=== PATIENT | female | born 1985 | race American Indian/Alaskan Native ===

== ENCOUNTER 2016-08-01 10:05 | Outpatient (CLI) | payer BC ==
[2016-08-01 12:32] LABS: Blood Urea Nitrogen 10 mg/dL (7-17)
[2016-08-01] MEDS ORDERED: NACL ONE (13:07)
--- NOTE | 2016-08-01 15:43 | Cat Scan Report ---
CT scan of chest with IV contrast: History: Hodgkin lymphoma. Fullness in left supra clavicular area. Findings: No mediastinal mass. No mediastinal, hilar or axillary adenopathy. No mass in the supraclavicular region. No pleural or pericardial effusion. Normal lung parenchyma. No discrete nodularity or consolidation. Impression: No mediastinal or lung mass or adenopathy.
--- NOTE | 2016-08-01 15:55 | Cat Scan Report ---
CT scan of neck with IV contrast: History: Hodgkin lymphoma. Findings: The laryngeal and tracheal air column appears unremarkable. Pre-and paravertebral soft tissue appears normal. The thyroid gland appears unremarkable. The submandibular salivary glands and the parotid glands appears normal. No evidence of adenopathy. No distinct mass. Impression: Essentially negative CT scan of neck.
== END 2016-08-01 10:06 | disposition home or self-care (01) ==
LOC: CT 10:05
DX: C81.90 Hodgkin lymphoma, unspecified, unspecified site (principal)
CPT/HCPCS: 36415; 70491; 71260; 82565; 84520; Q9967

== ENCOUNTER 2017-07-23 06:59 | Outpatient (CLI) | payer BC ==
--- NOTE | 2017-07-24 09:54 | PET Report ---
PET SB TO MT SUBSEQUENT: HISTORY: Restaging of lymphoma. TECHNIQUE: 13.5 millicuries F-18 FDG was administered intravenously. Noncontrast CT images and PET images were obtained from the skull base to the proximal thighs. Fused images were reviewed on a workstation. The patient's blood glucose level measured 128. COMPARISON: 05/31/15. FINDINGS: BRAIN: physiologic FDG uptake in the imaged brain. NECK: physiologic FDG uptake. MEDIASTINUM: physiologic FDG uptake. LUNGS: physiologic FDG uptake. Patchy groundglass opacities have resolved since 05/31/15. PLEURA/PERICARDIUM: physiologic FDG uptake. THORACIC LYMPH NODES: physiologic FDG uptake. HEPATOBILIARY: physiologic FDG uptake. Mean liver SUV measures 4.8 as opposed to 5.2 on the previous exam. Focal activity at in the posterior right hepatic lobe noted on the previous exam is no longer seen. PANCREAS: physiologic FDG uptake. SPLEEN: physiologic FDG uptake. ADRENAL GLANDS: physiologic FDG uptake. KIDNEYS/RENAL COLLECTING SYSTEMS: physiologic FDG uptake. BOWEL/MESENTERY: physiologic FDG uptake. PELVIC VISCERA: physiologic FDG uptake. ABDOMINAL/PELVIC LYMPH NODES: physiologic FDG uptake. MUSCULOSKELETAL: physiologic FDG uptake. IMPRESSION: Negative PET/CT. No evidence for disease recurrence or metastasis.
== END 2017-07-23 07:00 | disposition home or self-care (01) ==
LOC: PET 06:59
DX: C81.90 Hodgkin lymphoma, unspecified, unspecified site (principal); J45.909 Unspecified asthma, uncomplicated; Z79.899 Other long term (current) drug therapy
CPT/HCPCS: 78815; 82962; A9552